=== PATIENT | male | born 1975 | race Caucasian/White ===

== ENCOUNTER 2016-07-19 04:23 | Emergency (ER) | payer MEDICARE, OTHER ==
--- NOTE | 2016-07-19 04:32 | ED ---
General Adult HPI - General Stated complaint: nausea,vomitting/blood Time Seen by Provider: 07/19/16 04:29 Source: RN notes reviewed, old records reviewed - History of Present Illness Initial comments: This is a 41-year-old male the ER for evaluation of possible GI bleed. Patient has some vomiting after dinner tonight and in the course of his vomiting he did vomit up some blood. Patient is on a blood thinners, does suffer from blood pressure, history of lymphoma with her nonissue at this time. Patient did not take his blood pressure medication tonight. Patient states he has no pain right now. Mild headache. In no nausea vomiting while in emergency room. His bowel movements have been loose but no blood, not dark and tarry. Patient denies any symptoms of weakness dizziness lightheadedness. Patient has no prior history of colonoscopy or blood in his stool or vomit - Related Data Home Medications Medication Instructions Recorded Confirmed Lisinopril [Zestril] 20 mg PO BID 02/26/15 07/19/16 Metoprolol Succinate [Toprol XL] 50 mg PO DAILY 02/26/15 07/19/16 metFORMIN HCL [Glucophage] 500 mg PO TID 02/26/15 07/19/16 Allergies Allergy/AdvReac Type Severity Reaction Status Date / Time Penicillins Allergy Rash/Hives Verified 10/22/15 01:10 sulfamethoxazole Allergy Rash/Hives Verified 10/22/15 01:10 [From Bactrim] trimethoprim [From Bactrim] Allergy Rash/Hives Verified 10/22/15 01:10 Review of Systems ROS Statement: Those systems with pertinent positive or pertinent negative responses have been documented in the HPI. ROS Other: All systems not noted in ROS Statement are negative. Past Medical History Past Medical History: Cancer, Diabetes Mellitus, Hypertension Additional Past Medical History / Comment(s): Hodgkins Lymphoma-In remission History of Any Multi-Drug Resistant Organisms: None Reported Past Surgical History: Cholecystectomy Additional Past Surgical History / Comment(s): umbilical hernia repair as a baby , undescended testicles, ear tube Past Anesthesia/Blood Transfusion Reactions: No Reported Reaction Past Psychological History: No Psychological Hx Reported Smoking Status: Never smoker Past Alcohol Use History: None Reported Past Drug Use History: None Reported - Past Family History Mother Family Medical History: Hypertension Additional Family Medical History / Comment(s): weak heart, failed stress test , clear cath,high cholesterol Father Family Medical History: Hypertension Additional Family Medical History / Comment(s): estheseoneuroblastoma, 2 clear caths, high cholesterol Brother(s) Additional Family Medical History / Comment(s): dislocated hip diagnosed at 2.5 years old, elevated heart rate General Exam General appearance: alert, in no apparent distress Head exam: Present: atraumatic, normocephalic, normal inspection Eye exam: Present: normal appearance, PERRL, EOMI. Absent: scleral icterus, conjunctival injection, periorbital swelling ENT exam: Present: normal exam, mucous membranes moist Neck exam: Present: normal inspection. Absent: tenderness, meningismus, lymphadenopathy Respiratory exam: Present: normal lung sounds bilaterally. Absent: respiratory distress, wheezes, rales, rhonchi, stridor Cardiovascular Exam: Present: regular rate, normal rhythm, normal heart sounds. Absent: systolic murmur, diastolic murmur, rubs, gallop, clicks GI/Abdominal exam: Present: soft, normal bowel sounds. Absent: distended, tenderness, guarding, rebound, rigid Extremities exam: Present: normal inspection, full ROM, normal capillary refill. Absent: tenderness, pedal edema, joint swelling, calf tenderness Back exam: Present: normal inspection Neurological exam: Present: alert, oriented X3, CN II-XII intact Psychiatric exam: Present: normal affect, normal mood Skin exam: Present: warm, dry, intact, normal color. Absent: rash Course Vital Signs 07/19/16 04:25 Temperature 97.8 F Pulse Rate 98 Respiratory 18 Rate Blood Pressure 212/111 O2 Sat by Pulse 97 Oximetry - Reevaluation(s) Reevaluation #1: 07/19/16 05:59 Patient remains without vomiting here in the emergency room Medical Decision Making - Medical Decision Making 41 male the ER for evaluation nausea vomiting, hematemesis. Patient's hemoglobin is normal, vital signs are normal and stable, patient is no active vomiting of blood here in the emergency room. Patient will be discharged home to return if symptoms worsen or continue. If patient feels lightheadedness dizziness or weakness. Patient denies history of drinking. States vomiting of blood was one episode after multiple vomiting after eating. - Lab Data Result diagrams: 07/19/16 04:45 07/19/16 04:45 Lab Results 07/19/16 07/19/16 07/19/16 Range/Units 04:45 04:45 04:45 WBC 8.7 (3.8-10.6) k/uL RBC 4.67 (4.30-5.90) m/uL Hgb 12.8 L (13.0-17.5) gm/dL Hct 38.9 L (39.0-53.0) % MCV 83.3 (80.0-100.0) fL MCH 27.5 (25.0-35.0) pg MCHC 33.0 (31.0-37.0) g/dL RDW 13.5 (11.5-15.5) % Plt Count 304 (150-450) k/uL Neutrophils % 81 % Lymphocytes % 10 % Monocytes % 5 % Eosinophils % 1 % Basophils % 1 % Neutrophils # 7.1 (1.3-7.7) k/uL Lymphocytes # 0.9 L (1.0-4.8) k/uL Monocytes # 0.5 (0-1.0) k/uL Eosinophils # 0.1 (0-0.7) k/uL Basophils # 0.1 (0-0.2) k/uL PT (9.0-12.0) sec INR (<1.1) APTT (22.0-30.0) sec Sodium 142 (137-145) mmol/L Potassium 4.4 (3.5-5.1) mmol/L Chloride 98 (98-107) mmol/L Carbon Dioxide 28 (22-30) mmol/L Anion Gap 16 mmol/L BUN 18 (9-20) mg/dL Creatinine 0.70 (0.66-1.25) mg/dL Est GFR (MDRD) Af Amer >60 (>60 ml/min/1.73 sqM) Est GFR (MDRD) Non-Af >60 (>60 ml/min/1.73 sqM) Glucose 273 H (74-99) mg/dL Calcium 10.2 (8.4-10.2) mg/dL Magnesium 1.5 L (1.6-2.3) mg/dL Total Bilirubin 0.9 (0.2-1.3) mg/dL AST 30 (17-59) U/L ALT 55 (21-72) U/L Alkaline Phosphatase 85 (38-126) U/L Total Creatine Kinase 102 (55-170) U/L CK-MB (CK-2) 0.8 (0.0-2.4) ng/mL CK-MB (CK-2) Rel Index 0.8 Troponin I <0.012 (0.000-0.034) ng/mL Total Protein 7.7 (6.3-8.2) g/dL Albumin 4.9 (3.5-5.0) g/dL Lipase 161 (23-300) U/L 07/19/16 Range/Units 04:45 WBC (3.8-10.6) k/uL RBC (4.30-5.90) m/uL Hgb (13.0-17.5) gm/dL Hct (39.0-53.0) % MCV (80.0-100.0) fL MCH (25.0-35.0) pg MCHC (31.0-37.0) g/dL RDW (11.5-15.5) % Plt Count (150-450) k/uL Neutrophils % % Lymphocytes % % Monocytes % % Eosinophils % % Basophils % % Neutrophils # (1.3-7.7) k/uL Lymphocytes # (1.0-4.8) k/uL Monocytes # (0-1.0) k/uL Eosinophils # (0-0.7) k/uL Basophils # (0-0.2) k/uL PT 9.9 (9.0-12.0) sec INR 1.0 (<1.1) APTT 20.7 L (22.0-30.0) sec Sodium (137-145) mmol/L Potassium (3.5-5.1) mmol/L Chloride (98-107) mmol/L Carbon Dioxide (22-30) mmol/L Anion Gap mmol/L BUN (9-20) mg/dL Creatinine (0.66-1.25) mg/dL Est GFR (MDRD) Af Amer (>60 ml/min/1.73 sqM) Est GFR (MDRD) Non-Af (>60 ml/min/1.73 sqM) Glucose (74-99) mg/dL Calcium (8.4-10.2) mg/dL Magnesium (1.6-2.3) mg/dL Total Bilirubin (0.2-1.3) mg/dL AST (17-59) U/L ALT (21-72) U/L Alkaline Phosphatase (38-126) U/L Total Creatine Kinase (55-170) U/L CK-MB (CK-2) (0.0-2.4) ng/mL CK-MB (CK-2) Rel Index Troponin I (0.000-0.034) ng/mL Total Protein (6.3-8.2) g/dL Albumin (3.5-5.0) g/dL Lipase (23-300) U/L Disposition Clinical Impression: Angeline-Kline tear, Upper gastrointestinal hemorrhage Disposition: HOME SELF-CARE Condition: Good Instructions: Gastrointestinal Bleeding (ED) Referrals: Avi Jovel MD [Primary Care Provider] - 1-2 days
[2016-07-19 04:34] VITALS: TEMP 97.8
[2016-07-19] MEDS ORDERED: SODIUM CHLORIDE 0.9% 500 ML IV STA (04:39)
[2016-07-19] MEDS ORDERED: SODIUM CHLORIDE 0.9% 1,000 ML IV STA (04:39)
[2016-07-19] MEDS ORDERED: PANTOPRAZOLE 40 MG/10 ML VIAL IVP STA (04:39)
[2016-07-19] MEDS ORDERED: ONDANSETRON 4 MG/2 ML VIAL IVP STA (04:39)
[2016-07-19 04:58] LABS: Basophils # (A) 0.1 k/uL (0-0.2); Basophils % (A) 1 %; CH 27.7; CHCM 33.4; Eosinophils # (A) 0.1 k/uL (0-0.7); Eosinophils % (A) 1 %; HCT 38.9 % (39.0-53.0); HDW 2.58; HGB 12.8 gm/dL (13.0-17.5); Luc # (Auto) 0.12; Luc % (Auto) 1; Lymphocytes # (A) 0.9 k/uL (1.0-4.8); Lymphocytes % (A) 10 %; MCH 27.5 pg (25.0-35.0); MCV 83.3 fL (80.0-100.0); Mean Platelet Volume 7.7; Monocytes # (A) 0.5 k/uL (0-1.0); Monocytes % (A) 5 %; Neutrophils # (A) 7.1 k/uL (1.3-7.7); Neutrophils % (A) 81 %; RBC 4.67 m/uL (4.30-5.90); RDW 13.5 % (11.5-15.5); WBC 8.7 k/uL (3.8-10.6)
[2016-07-19 05:11] LABS: ALT 55 U/L (21-72); AST 30 U/L (17-59); Alkaline Phosphatase 85 U/L (38-126); Anion Gap 16 mmol/L; Blood Urea Nitrogen 18 mg/dL (9-20); Calcium 10.2 mg/dL (8.4-10.2); Carbon Dioxide 28 mmol/L (22-30); Chloride 98 mmol/L (98-107); Glucose 273 mg/dL (74-99); Magnesium 1.5 mg/dL (1.6-2.3); Non-African American GFR(MDRD) >60 (>60 ml/min/1.73 sqM); Potassium 4.4 mmol/L (3.5-5.1); Sodium 142 mmol/L (137-145); Total Bilirubin 0.9 mg/dL (0.2-1.3); Total Protein 7.7 g/dL (6.3-8.2)
[2016-07-19 05:22] LABS: Prothrombin Time 9.9 sec (9.0-12.0)
[2016-07-19 05:23] LABS: Creatine Kinase 102 U/L (55-170)
[2016-07-19 05:29] LABS: Partial Thromboplastin Time 20.7 sec (22.0-30.0)
[2016-07-19 05:35] LABS: Creatine Kinase MB 0.8 ng/mL (0.0-2.4); Troponin I <0.012 ng/mL (0.000-0.034)
[2016-07-19] MEDS ORDERED: LABETALOL SYRINGE 5 MG/ML IVP STA (05:58)
[2016-07-19] MEDS: ACETAMINOPHEN IV (For NPO) 1,000 MG in EMPTY BAG 1 BAG IVPB STA ×2 (06:12→06:25)
[2016-07-19 07:00] VITALS: BP 156/97; PULSE 97; RESP 16
== END 2016-07-19 06:59 | disposition home or self-care (01) ==
LOC: EC 04:23
DX: K22.6 Gastro-esophageal laceration-hemorrhage syndrome (principal); K92.2 Gastrointestinal hemorrhage, unspecified; R51 Headache; I10 Essential (primary) hypertension; E11.9 Type 2 diabetes mellitus without complications; Z85.71 Personal history of Hodgkin lymphoma; Z79.899 Other long term (current) drug therapy; Z79.84 Long term (current) use of oral hypoglycemic drugs; Z88.0 Allergy status to penicillin; Z88.1 Allergy status to other antibiotic agents; Z88.2 Allergy status to sulfonamides
CPT/HCPCS: 36415; 80053; 82550; 82553; 83690; 83735; 84484; 85025; 85610; 85730; 99284; 96374; 96375; 96361; J2405; J0131; C9113

== ENCOUNTER → 2016-09-18 | Outpatient (CLI) | payer MEDICARE, OTHER ==
[2016-09-18 13:31] LABS: Basophils # (A) 0.1 k/uL (0-0.2); Basophils % (A) 1 %; CH 27.9; CHCM 32.8; Eosinophils # (A) 0.2 k/uL (0-0.7); Eosinophils % (A) 3 %; HCT 38.4 % (39.0-53.0); HDW 2.55; HGB 12.4 gm/dL (13.0-17.5); Luc # (Auto) 0.11; Luc % (Auto) 2; Lymphocytes # (A) 1.4 k/uL (1.0-4.8); Lymphocytes % (A) 26 %; MCH 27.5 pg (25.0-35.0); MCHC 32.2 g/dL (31.0-37.0); MCV 85.4 fL (80.0-100.0); Mean Platelet Volume 7.9; Monocytes # (A) 0.2 k/uL (0-1.0); Monocytes % (A) 4 %; Neutrophils # (A) 3.4 k/uL (1.3-7.7); Neutrophils % (A) 64 %; RBC 4.49 m/uL (4.30-5.90); RDW 13.8 % (11.5-15.5); WBC 5.3 k/uL (3.8-10.6); WBC (Perox) 5.41
[2016-09-18 13:33] LABS: Reticulocyte % 6.4 % (0.5-2.0)
[2016-09-18 13:36] LABS: ALT 49 U/L (21-72); AST 29 U/L (17-59); Alkaline Phosphatase 77 U/L (38-126); Anion Gap 13 mmol/L; Blood Urea Nitrogen 18 mg/dL (9-20); Calcium 10.4 mg/dL (8.4-10.2); Carbon Dioxide 30 mmol/L (22-30); Chloride 98 mmol/L (98-107); Glucose 282 mg/dL (74-99); Iron 78 ug/dL (49-181); Non-African American GFR(MDRD) >60 (>60 ml/min/1.73 sqM); Potassium 4.5 mmol/L (3.5-5.1); Sodium 141 mmol/L (137-145); Total Bilirubin 0.7 mg/dL (0.2-1.3); Total Protein 7.5 g/dL (6.3-8.2)
[2016-09-18 13:45] LABS: Total Iron Binding Capacity 300 ug/dL (261-462)
[2016-09-18 14:43] LABS: Vitamin B12 402 pg/mL (239-931)
== END | disposition home or self-care (01) ==
LOC: LABWHC1 12:58
PROVIDERS: ATTEND Internal Medicine Hematology & Oncology
DX: C81.90 Hodgkin lymphoma, unspecified, unspecified site (principal); D51.0 Vitamin B12 deficiency anemia due to intrinsic factor deficiency
CPT/HCPCS: 36415; 80053; 82607; 82728; 82746; 83540; 83550; 85025; 85045

== ENCOUNTER 2016-10-22 00:35 | Observation (INO) | payer MEDICARE, OTHER ==
[2016-10-22] MEDS ORDERED: ASPIRIN 81 MG CHEW PO STA (01:38)
[2016-10-22] MEDS ORDERED: MORPHINE SULFATE 4 MG/ML SYRINGE IVP STA (01:46)
[2016-10-22 02:01] LABS: Basophils # (A) 0.1 k/uL (0-0.2); Basophils % (A) 1 %; CH 28.3; CHCM 34.5; Eosinophils # (A) 0.2 k/uL (0-0.7); Eosinophils % (A) 3 %; HCT 35.6 % (39.0-53.0); HDW 2.53; Luc # (Auto) 0.12; Luc % (Auto) 2; Lymphocytes # (A) 1.8 k/uL (1.0-4.8); Lymphocytes % (A) 24 %; MCH 27.7 pg (25.0-35.0); MCHC 33.6 g/dL (31.0-37.0); MCV 82.4 fL (80.0-100.0); Mean Platelet Volume 7.5; Monocytes # (A) 0.2 k/uL (0-1.0); Monocytes % (A) 3 %; Neutrophils # (A) 5.3 k/uL (1.3-7.7); Neutrophils % (A) 69 %; RBC 4.32 m/uL (4.30-5.90); RDW 13.6 % (11.5-15.5); WBC 7.7 k/uL (3.8-10.6); WBC (Perox) 7.95
[2016-10-22 02:10] LABS: ALT 61 U/L (21-72); AST 31 U/L (17-59); Alkaline Phosphatase 87 U/L (38-126); Anion Gap 13 mmol/L; Blood Urea Nitrogen 24 mg/dL (9-20); Calcium 10.5 mg/dL (8.4-10.2); Carbon Dioxide 25 mmol/L (22-30); Chloride 99 mmol/L (98-107); Glucose 267 mg/dL (74-99); Magnesium 1.6 mg/dL (1.6-2.3); Non-African American GFR(MDRD) >60 (>60 ml/min/1.73 sqM); Potassium 4.5 mmol/L (3.5-5.1); Sodium 137 mmol/L (137-145); Total Bilirubin 0.6 mg/dL (0.2-1.3); Total Protein 7.4 g/dL (6.3-8.2)
--- NOTE | 2016-10-22 02:11 | ED ---
Recheck HPI - General Chief Complaint: Recheck/Abnormal Lab/Rx Stated Complaint: high BP and sugar Time Seen by Provider: 10/22/16 01:06 Source: patient, RN notes reviewed, old records reviewed Mode of arrival: ambulatory Limitations: no limitations - History of Present Illness Initial Comments: This is a 41-year-old male presenting to emergency with chief complaint of elevated blood sugar and high blood pressure to the past 2 days. Patient also reports he's had some chest pain. He relates that he has chronic chest pain after a port was placed in his left chest. He states these been trying to follow-up with multiple physicians to have this handled. Patient states that over the past day and feels that very heaviness on his chest. He also complains of some epigastric pain. Patient denies any fever or chills or cough. Denies any shortness of breath or diaphoresis. Patient states that he does have a history of cardiomyopathy. - Related Data Home Medications Medication Instructions Recorded Confirmed Lisinopril [Zestril] 20 mg PO BID 02/26/15 10/22/16 Metoprolol Succinate [Toprol XL] 50 mg PO DAILY 02/26/15 10/22/16 Cyanocobalamin [Vitamin B-12] 500 mcg PO DAILY 10/22/16 10/22/16 amLODIPine BESYLATE [Norvasc] 5 mg PO DAILY 10/22/16 10/22/16 sitaGLIPtin [Januvia] 100 mg PO DAILY 10/22/16 10/22/16 Allergies Allergy/AdvReac Type Severity Reaction Status Date / Time Penicillins Allergy Rash/Hives Verified 10/22/16 08:34 sulfamethoxazole Allergy Rash/Hives Verified 10/22/16 08:34 [From Bactrim] trimethoprim [From Bactrim] Allergy Rash/Hives Verified 10/22/16 08:34 Review of Systems ROS Statement: Those systems with pertinent positive or pertinent negative responses have been documented in the HPI. ROS Other: All systems not noted in ROS Statement are negative. Past Medical History Past Medical History: Cancer, Diabetes Mellitus, Hypertension Additional Past Medical History / Comment(s): Hodgkins Lymphoma-In remission History of Any Multi-Drug Resistant Organisms: None Reported Past Surgical History: Cholecystectomy Additional Past Surgical History / Comment(s): umbilical hernia repair as a baby , undescended testicles, ear tube Past Anesthesia/Blood Transfusion Reactions: No Reported Reaction Past Psychological History: No Psychological Hx Reported Smoking Status: Never smoker Past Alcohol Use History: None Reported Past Drug Use History: None Reported - Past Family History Mother Family Medical History: Hypertension Additional Family Medical History / Comment(s): weak heart, failed stress test , clear cath,high cholesterol Father Family Medical History: Hypertension Additional Family Medical History / Comment(s): estheseoneuroblastoma, 2 clear caths, high cholesterol Brother(s) Additional Family Medical History / Comment(s): dislocated hip diagnosed at 2.5 years old, elevated heart rate General Exam - General Exam Comments Initial Comments: Is a pleasant 41-year-old male. Patient does not appear to be in any acute distress. Limitations: no limitations General appearance: alert, in no apparent distress Head exam: Present: atraumatic, normocephalic, normal inspection Eye exam: Present: normal appearance, PERRL, EOMI. Absent: scleral icterus, conjunctival injection, periorbital swelling ENT exam: Present: normal exam, mucous membranes moist Neck exam: Present: normal inspection. Absent: tenderness, meningismus, lymphadenopathy Respiratory exam: Present: normal lung sounds bilaterally. Absent: respiratory distress, wheezes, rales, rhonchi, stridor Cardiovascular Exam: Present: regular rate, normal rhythm, normal heart sounds. Absent: systolic murmur, diastolic murmur, rubs, gallop, clicks GI/Abdominal exam: Present: soft, normal bowel sounds. Absent: distended, tenderness, guarding, rebound, rigid Extremities exam: Present: normal inspection, full ROM, normal capillary refill. Absent: tenderness, pedal edema, joint swelling, calf tenderness Back exam: Present: normal inspection Neurological exam: Present: alert, oriented X3, CN II-XII intact Psychiatric exam: Present: normal affect, normal mood Course Vital Signs 10/22/16 10/22/16 10/22/16 00:45 01:04 05:45 Temperature 97.7 F Pulse Rate 84 80 63 Respiratory 20 18 18 Rate Blood Pressure 187/110 169/105 137/77 O2 Sat by Pulse 98 98 98 Oximetry 10/22/16 10/22/16 10/22/16 06:25 07:46 09:43 Temperature 98 F Pulse Rate 73 68 70 Respiratory 18 16 16 Rate Blood Pressure 142/76 125/79 128/79 O2 Sat by Pulse 94 L 96 97 Oximetry Medical Decision Making - Medical Decision Making This is a 41-year-old male presents emergency Department with chief complaint of elevated blood pressure and blood sugar for the past few days. Patient also is concerned because he does have some heavy like chest pressure. Patient states he has a history of cardiomyopathy. EKG was reviewed does show significant ST-T wave abnormalities in the inferior and anterior lateral leads. Lab work reviewed, Blood glucose 261. Troponin negative. PAtient will be admitted for serial troponins. PAtient was given Morphine, and Aspirin. PAtient states that he cannot take nitroglycerin, from previous bad reaction that dropped his blood pressure too low. Patient will be kept for observatoin and cardiology consult. - Lab Data Result diagrams: 10/22/16 01:50 10/22/16 01:50 Lab Results 10/22/16 10/22/16 10/22/16 Range/Units 01:50 01:50 01:50 WBC 7.7 (3.8-10.6) k/uL RBC 4.32 (4.30-5.90) m/uL Hgb 12.0 L (13.0-17.5) gm/dL Hct 35.6 L (39.0-53.0) % MCV 82.4 (80.0-100.0) fL MCH 27.7 (25.0-35.0) pg MCHC 33.6 (31.0-37.0) g/dL RDW 13.6 (11.5-15.5) % Plt Count 259 (150-450) k/uL Neutrophils % 69 % Lymphocytes % 24 % Monocytes % 3 % Eosinophils % 3 % Basophils % 1 % Neutrophils # 5.3 (1.3-7.7) k/uL Lymphocytes # 1.8 (1.0-4.8) k/uL Monocytes # 0.2 (0-1.0) k/uL Eosinophils # 0.2 (0-0.7) k/uL Basophils # 0.1 (0-0.2) k/uL Sodium 137 (137-145) mmol/L Potassium 4.5 (3.5-5.1) mmol/L Chloride 99 (98-107) mmol/L Carbon Dioxide 25 (22-30) mmol/L Anion Gap 13 mmol/L BUN 24 H (9-20) mg/dL Creatinine 1.00 (0.66-1.25) mg/dL Est GFR (MDRD) Af Amer >60 (>60 ml/min/1.73 sqM) Est GFR (MDRD) Non-Af >60 (>60 ml/min/1.73 sqM) Glucose 267 H (74-99) mg/dL Calcium 10.5 H (8.4-10.2) mg/dL Magnesium 1.6 (1.6-2.3) mg/dL Total Bilirubin 0.6 (0.2-1.3) mg/dL AST 31 (17-59) U/L ALT 61 (21-72) U/L Alkaline Phosphatase 87 (38-126) U/L Total Creatine Kinase 73 (55-170) U/L CK-MB (CK-2) 0.9 (0.0-2.4) ng/mL CK-MB (CK-2) Rel Index 1.2 Troponin I <0.012 (0.000-0.034) ng/mL NT-Pro-B Natriuret Pep pg/mL Total Protein 7.4 (6.3-8.2) g/dL Albumin 4.5 (3.5-5.0) g/dL 10/22/16 Range/Units 01:50 WBC (3.8-10.6) k/uL RBC (4.30-5.90) m/uL Hgb (13.0-17.5) gm/dL Hct (39.0-53.0) % MCV (80.0-100.0) fL MCH (25.0-35.0) pg MCHC (31.0-37.0) g/dL RDW (11.5-15.5) % Plt Count (150-450) k/uL Neutrophils % % Lymphocytes % % Monocytes % % Eosinophils % % Basophils % % Neutrophils # (1.3-7.7) k/uL Lymphocytes # (1.0-4.8) k/uL Monocytes # (0-1.0) k/uL Eosinophils # (0-0.7) k/uL Basophils # (0-0.2) k/uL Sodium (137-145) mmol/L Potassium (3.5-5.1) mmol/L Chloride (98-107) mmol/L Carbon Dioxide (22-30) mmol/L Anion Gap mmol/L BUN (9-20) mg/dL Creatinine (0.66-1.25) mg/dL Est GFR (MDRD) Af Amer (>60 ml/min/1.73 sqM) Est GFR (MDRD) Non-Af (>60 ml/min/1.73 sqM) Glucose (74-99) mg/dL Calcium (8.4-10.2) mg/dL Magnesium (1.6-2.3) mg/dL Total Bilirubin (0.2-1.3) mg/dL AST (17-59) U/L ALT (21-72) U/L Alkaline Phosphatase (38-126) U/L Total Creatine Kinase (55-170) U/L CK-MB (CK-2) (0.0-2.4) ng/mL CK-MB (CK-2) Rel Index Troponin I (0.000-0.034) ng/mL NT-Pro-B Natriuret Pep 120 pg/mL Total Protein (6.3-8.2) g/dL Albumin (3.5-5.0) g/dL 10/22/16 02:11 EKG shows normal sinus rhythm. Right superior axis deviation. ST-T wave abnormality inferior and anterior lateral leads. Major rates a 4 bpm. DC interval 180. Care estrogen one only. QT QTC 382/420 for muscle pains. Disposition Clinical Impression: Chest pain Disposition: ADMITTED IP TO THIS HOSP Condition: Stable Time of Disposition: 02:34
[2016-10-22 02:26] LABS: Creatine Kinase 73 U/L (55-170)
[2016-10-22] MEDS ORDERED: NITROGLYCERIN SL TABS 0.4 MG TAB SUBLINGUAL PRN (02:31)
[2016-10-22 02:40] LABS: Creatine Kinase MB 0.9 ng/mL (0.0-2.4); Troponin I <0.012 ng/mL (0.000-0.034)
[2016-10-22] MEDS ORDERED: ACETAMINOPHEN TAB 325 MG TAB PO PRN (02:42)
[2016-10-22] MEDS ORDERED: MORPHINE SULFATE 4 MG/ML SYRINGE IV PRN (02:42)
[2016-10-22] MEDS ORDERED: NALOXONE 0.4 MG/ML 1 ML VIAL IV PRN (02:42)
[2016-10-22] MEDS: ONDANSETRON 4 MG/2 ML VIAL IVP PRN ×2 (02:52→11:27)
--- NOTE | 2016-10-22 04:38 | XR ---
EXAM: XR Chest, 2 Views CLINICAL HISTORY: Reason: Chest Pain TECHNIQUE: Frontal and lateral views of the chest. COMPARISON: Chest x-ray dated 10/22/2015 FINDINGS: Lungs: Bibasilar atelectasis. Pleural space: Unremarkable. No pneumothorax. Heart: Mild enlargement of the cardiomediastinal silhouette. Mediastinum: See above. Bones/joints: Unremarkable. IMPRESSION: No acute findings.
[2016-10-22 07:33] LABS: Appearance,Urine Cloudy (Clear); Bilirubin,Urine Negative (Negative); Glucose,Urine (UA) Negative (Negative); Ketones,Urine Negative (Negative); Leukocyte Esterase,Urine Moderate (Negative); Nitrite,Urine Negative (Negative); Particle Count 423; Protein,Urine Trace (Negative); Specific Gravity,Urine 1.021 (1.001-1.035); UA Billing (MACRO vs. MICRO) MICRO; WBC,Urine <1 /hpf (0-5)
[2016-10-22 07:47] VITALS: RESP 16
[2016-10-22 08:11] LABS: Creatine Kinase 68 U/L (55-170)
[2016-10-22 08:22] LABS: Glucose,Whole Blood 260 mg/dL (75-99)
[2016-10-22 08:24] LABS: Creatine Kinase MB 0.8 ng/mL (0.0-2.4); Troponin I <0.012 ng/mL (0.000-0.034)
[2016-10-22] MEDS: INSULIN LISPRO (humaLOG) 300 UNIT/3 ML VIAL SQ SCH ×3 (08:30→19:03)
[2016-10-22] MEDS ORDERED: METOPROLOL SUCCINATE (ER) 50 MG TAB.ER.24H PO SCH (09:00)
[2016-10-22] MEDS: LISINOPRIL 20 MG TAB PO SCH ×2 (09:11→20:55)
[2016-10-22] MEDS: LINAGLIPTIN 5 MG TABLET PO SCH (09:11)
[2016-10-22] MEDS: KETOROLAC 30 MG/ML 1 ML VIAL IVP PRN ×2 (12:30→20:21)
[2016-10-22 17:02] LABS: Creatine Kinase 67 U/L (55-170)
[2016-10-22 17:14] LABS: Creatine Kinase MB 0.9 ng/mL (0.0-2.4); Troponin I <0.012 ng/mL (0.000-0.034)
[2016-10-22 17:16] LABS: Glucose,Whole Blood 226 mg/dL (75-99)
[2016-10-22] MEDS: metFORMIN 500 MG TAB PO SCH (19:03)
[2016-10-22] MEDS: ENOXAPARIN 40 MG/0.4 ML SYRINGE SQ SCH (19:03)
[2016-10-22 19:56] LABS: Partial Thromboplastin Time 22.1 sec (22.0-30.0); Prothrombin Time 10.1 sec (9.0-12.0)
[2016-10-22 19:58] LABS: Cholesterol 206 mg/dL (<200); HDL Cholesterol 45 mg/dL (40-60); Triglycerides 141 mg/dL (<150)
[2016-10-22 20:51] LABS: Glucose,Whole Blood 142 mg/dL (75-99)
[2016-10-22] MEDS: ATORVASTATIN 20 MG TAB PO SCH (20:55)
[2016-10-22] MEDS: METOPROLOL TARTRATE 50 MG TAB PO SCH (20:55)
--- NOTE | 2016-10-22 21:26 | CONS ---
DATE OF CONSULTATION: Mr. Mg Goldberg is a patient of Dr. Chester. He was admitted. When I asked the patient why he came to the hospital, he stated that his sugar was high. However, he also complains of some chest discomfort and was admitted to observation and cardiology consult was called. His pain actually is related to the port and he states that it hurts at night. He does not have any exertional discomfort. No shortness of breath on exertion. His medication list was reviewed and is documented in the chart and includes: 1. Lisinopril. 2. Metoprolol. 3. Vitamin B12. 4. Amlodipine. 5. Diabetes medications. HE IS ALLERGIC TO PENICILLIN, SULFA, AND BACTRIM. REVIEW OF SYSTEMS: No fever, chills, rigors. No cough or expectoration. No nausea, vomiting, or diarrhea. No hematuria, dysuria, strokes or seizures. No skin lesions or musculoskeletal complaints. Past history of diabetes and hypertension. SOCIAL HISTORY: Nonsmoker. On examination, he is afebrile. His blood pressure is 137/77 mm of mercury, respirations are normal. Heart sounds S1, S2 are normal. Breath sounds are normal. ABDOMEN: Soft, nontender. EXTREMITIES: Warm. No JVD. No thyromegaly. His labs are reviewed. Two sets of cardiac enzymes were normal. His blood sugars are elevated. His LDL is 133. IMPRESSION: 1. Atypical chest discomfort localized around his port. 2. Elevated blood sugars with diabetes. 3. LDL 133. SUGGEST: Await third set of cardiac enzymes and heparin can be discontinued. Start 20 mg of atorvastatin. The pain is quite atypical and he may follow with Dr. Yoko Chester and seen in the next few days.
--- NOTE | 2016-10-22 22:33 | HP ---
DATE OF ADMISSION: 10/22/2016 PRESENTING COMPLAINT: High blood sugar, high blood pressure. HISTORY OF PRESENTING COMPLAINT: This is a pleasant 41-year-old patient of Dr. Jovel whose has a mental age of probably grade 13. Other chronic stable medical conditions include diabetes, obstructive sleep apnea, uses CPAP machine. Patient lives with his parents. Patient presented with episode of not feeling well, blood pressure up, heart racing; gets these episodes. Also blood sugar has been running high. He also had some vomiting today. Feeling tired and rundown. Often feels his heart racing with palpitations. Patient did have a port on the left side of the chest that was removed, and apparently some scar tissue often gives a stabbing pain at the local site; has been seen by different pain specialists for the same, with not much help. Most of the history is obtained from his mother at the bedside. REVIEW OF SYSTEMS: CONSTITUTIONAL: Tired. HEENT: None. RESPIRATORY: None. CARDIOVASCULAR: As above. GASTROINTESTINAL: As above. GENITOURINARY: None. MUSCULOSKELETAL: None. DERMATOLOGICAL: None. HEMATOLOGICAL: None. LYMPHATIC: None. PSYCHIATRY: Developmental delay. NEUROLOGICAL: None. PAST HISTORY: 1. Hypertension. 2. Diabetes mellitus, type 2. 3. Obstructive sleep apnea. 4. Hodgkin's lymphoma, treated some time ago. PAST SURGICAL HISTORY: 1. Cholecystectomy. 2. Umbilical hernia repair as a baby. 3. Undescended testicles. SOCIAL HISTORY: Lives with his parents. Mother is his legal guardian. No smoking. FAMILY HISTORY: Hypertension, weak heart, high cholesterol. HOME MEDICATIONS: 1. Januvia 100 mg p.o. daily. 2. Norvasc 5 mg p.o. daily. 3. Toprol XL 50 mg p.o. daily. 4. Zestril 20 mg p.o. daily. 5. Vitamin B12 500 mcg p.o. daily. ALLERGIES: PENICILLIN and BACTRIM. On examination, temperature 98, pulse 60, respiration 16, blood pressure 125/79, pulse ox 96% on room air. Later blood pressure was 159/96. GENERAL APPEARANCE: Average build. Sitting up. Patient did throw up once. Sweating. EYES: Pupils equal. Conjunctivae normal. HEENT: Oral cavity normal. NECK: JVD not raised. Mass not palpable. RESPIRATORY: Effort normal. Lungs are clear. CARDIOVASCULAR: First and second sounds normal. No edema. ABDOMEN: Soft, nontender. Liver and spleen not palpable. LYMPHATIC: No lymph node palpable in neck or axillae. PSYCHIATRY: Alert, oriented x3. Mood and affect anxious-appearing. NEUROLOGICAL: Pupils equal. Cranial nerves grossly intact. Power and sensation grossly intact. White count 7.7, hemoglobin 12. Potassium 4.5. BUN 24, creatinine 1.0. Accu-Cheks 267, 260. Troponin less than 0.012. CHEST X-RAY: Nil acute. EKG shows diffuse ST-segment changes from inferior anterolateral leads. ASSESSMENT: 1. This is a patient who presents with some high blood pressure, chest discomfort, palpitations with ST-segment changes across the leads. Rule out underlying ischemia. 2. Diabetes mellitus, type 2, on oral hypoglycemic, uncontrolled. 3. Obstructive sleep apnea; uses CPAP machine. 4. Hypertension. 5. Slight developmental delay. PLAN: At this point will discontinue the Toprol XL and change it to Lopressor 50 mg twice a day. Low-salt. Add metformin 500 mg twice a day in addition to Januvia. Cardiology is consulted. Also will add a 2-D echocardiogram. Care was discussed with the parents at the bedside.
[2016-10-23] MEDS: KETOROLAC 30 MG/ML 1 ML VIAL IVP PRN (07:11)
[2016-10-23 08:05] LABS: Cholesterol 190 mg/dL (<200); HDL Cholesterol 31 mg/dL (40-60); Triglycerides 294 mg/dL (<150)
[2016-10-23] MEDS ORDERED: ASPIRIN 325 MG TAB PO SCH (09:00)
[2016-10-23 09:32] VITALS: BMI 25.7
--- NOTE | 2016-10-23 09:41 | ECHOF ---
Referral Reason:chest pain MEASUREMENTS -------- HEIGHT: 127.0 cm WEIGHT: 54.0 kg BP: 138/89 IVSd: 1.1 cm (0.6 - 1.1) LVIDd: 4.6 cm (3.9 - 5.3) LVPWd: 0.9 cm (0.6 - 1.1) IVSs: 1.3 cm LVIDs: 4.0 cm LVPWs: 1.2 cm LA Diam: 3.2 cm (2.7 - 3.8) LAESV Index (A-L): 33.78 ml/m Ao Diam: 3.3 cm (2.0 - 3.7) AV Cusp: 1.5 cm (1.5 - 2.6) LA Diam: 3.1 cm (2.7 - 3.8) MV EXCURSION: 19.783 mm (> 18.000) MV EF SLOPE: 122 mm/s (70 - 150) EPSS: 0.8 cm MV E Jaron: 0.65 m/s MV DecT: 206 ms MV A Jaron: 0.77 m/s MV E/A Ratio: 0.85 RAP: 5.00 mmHg RVSP: 19.39 mmHg FINDINGS -------- Sinus rhythm. This was a technically adequate study. There is borderline concentric left ventricular hypertrophy. Overall left ventricular systolic function is normal with, an EF between 55 - 60 %. The right ventricle is normal in size. LA is midly dilated 29-33ml/m2. The right atrial size is normal. The aortic valve is trileaflet, and appears structurally normal. No aortic stenosis or regurgitation. Mild mitral annular calcification present. Mild mitral regurgitation is present. Mild tricuspid regurgitation present. There is no evidence of pulmonary hypertension. The right ventricular systolic pressure, as measured by Doppler, is 19.39mmHg. Trace/mild (physiologic) pulmonic regurgitation. The aortic root size is normal. There is no pericardial effusion. CONCLUSIONS -------- 1. There is borderline concentric left ventricular hypertrophy. 2. There is no pericardial effusion. 3. Overall left ventricular systolic function is normal with, an EF between 55 - 60 %. 4. LA is midly dilated 29-33ml/m2. 5. Mild mitral annular calcification present. 6. Mild mitral regurgitation is present. 7. Mild tricuspid regurgitation present. 8. There is no evidence of pulmonary hypertension. 9. The right ventricular systolic pressure, as measured by Doppler, is 19.39mmHg. 10. Trace/mild (physiologic) pulmonic regurgitation. JOB SUPERINTENDENT: Jessica Delaney RDCS
[2016-10-23] MEDS ORDERED: RX INFO: IV CONTRAST WAS GIVEN 1 EACH MISC MISCELLANE PRN (09:54)
[2016-10-23 10:27] LABS: Glucose,Whole Blood 201 mg/dL (75-99)
--- NOTE | 2016-10-23 11:12 | CT ---
CT CHEST FOR PULMONARY EMBOLISM. EXAMINATION TYPE: CT angio chest DATE OF EXAM: 10/23/2016 10:51 AM INDICATION: Patient poor historian. Patient had abnormal EKG and complains of some left side upper c hest pain. CT DLP: 172.5 mGycm, Automated exposure control for dose reduction was used. CONTRAST: Patient injected with 100 mL of Omnipaque 350. COMPARISON: NONE TECHNIQUE: CT of the chest is performed on a spiral scan at 2 mm thick sections. Study is performed with intravenous contrast timed for evaluation for pulmonary embolism. This will limit additional po rtions of the evaluation. 3-D MIP images reconstructed by the technologist are reviewed on the compu ter in the coronal and sagittal planes. FINDINGS: No persistent filling defects are evident to suggest an acute pulmonary embolism. No mediastinal or hilar adenopathy enlarged by CT criteria is evident. The ascending aorta diameter at the level of the main pulmonary artery is 2.5 cm. The main pulmonary artery diameter at the bifur cation is 1.8 cm. Minimal pneumonitis changes in the right apex. Minimal subsegmental atelectasis is likely along the r ight diaphragm. Limited CT section through the upper abdomen are unremarkable. Portion of the thyroid visualized is n ormal. IMPRESSIONS: 1. No acute pulmonary emboli. 2. Suggestion of minimal subsegmental atelectasis at the right base.
[2016-10-23] MEDS: INSULIN LISPRO (humaLOG) 300 UNIT/3 ML VIAL SQ SCH ×2 (11:18→13:03)
[2016-10-23] MEDS: ATORVASTATIN 20 MG TAB PO SCH (11:25)
[2016-10-23] MEDS: LISINOPRIL 20 MG TAB PO SCH (11:25)
[2016-10-23] MEDS: METOPROLOL TARTRATE 50 MG TAB PO SCH (11:25)
[2016-10-23] MEDS: LINAGLIPTIN 5 MG TABLET PO SCH (11:25)
[2016-10-23] MEDS: metFORMIN 500 MG TAB PO SCH (11:26)
[2016-10-23] MEDS: ENOXAPARIN 40 MG/0.4 ML SYRINGE SQ SCH (11:26)
[2016-10-23 12:23] LABS: Glucose,Whole Blood 320 mg/dL (75-99)
[2016-10-23 13:53] VITALS: BP 167/86; PULSE 87; TEMP 97.8
[2016-10-23] MEDS ORDERED: amLODIPine 5 MG TAB PO SCH (15:15)
--- NOTE | 2016-10-24 05:41 | DS ---
DATE OF ADMISSION: 10/22/2016 DATE OF DISCHARGE: 10/23/2016 FINAL DIAGNOSES: 1. Accelerated hypertension, present on admission. 2. Diabetes mellitus, type 2, on oral hypoglycemic, uncontrolled. 3. Obstructive sleep apnea, uses CPAP machine. 4. Essential hypertension as above. 5. Slight developmental delay. HOSPITAL COURSE: This patient presented with high blood pressure, high sugars, some chest pain. Seen by Dr. Penaloza. ( ) for any further workup. Patient's 2-D echocardiogram showed preserved LV function, EF 55% to 60%, no wall motion abnormality was reported. Chest CT was negative for pulmonary embolism. Metformin was added. Blood pressure medications were adjusted, and blood pressure is better controlled by the time of discharge. Patient is feeling better. Tolerating a diet. On examination, lungs are clear. CARDIOVASCULAR: First and second sounds normal. DISCHARGE MEDICATIONS: 1. Zestril 20 mg p.o. b.i.d. 2. Vitamin B12, 500 mcg p.o. daily. 3. Norvasc 5 mg p.o. daily. 4. Januvia 100 mg p.o. daily. 5. Lipitor 20 mg p.o. daily. 6. Lopressor 50 mg p.o. b.i.d. 7. Glucophage 500 mg p.o. b.i.d. Follow up with Dr. Peace in one week. Follow up with Dr. Jovel in 3 days.
== END 2016-10-23 16:44 | disposition home or self-care (01) ==
LOC: EC 00:35 → 3OBS 02:34
PROVIDERS: ADMIT Hospitalist; ATTEND Hospitalist
DX: I10 Essential (primary) hypertension (principal); E11.65 Type 2 diabetes mellitus with hyperglycemia; Z99.89 Dependence on other enabling machines and devices; G47.33 Obstructive sleep apnea (adult) (pediatric); Z79.899 Other long term (current) drug therapy; R62.50 Unspecified lack of expected normal physiological development in childhood; Z79.84 Long term (current) use of oral hypoglycemic drugs; Z88.0 Allergy status to penicillin; Z88.2 Allergy status to sulfonamides; Z85.71 Personal history of Hodgkin lymphoma; R10.13 Epigastric pain; R11.10 Vomiting, unspecified; R07.89 Other chest pain; R00.2 Palpitations; R00.0 Tachycardia, unspecified; E78.00 Pure hypercholesterolemia, unspecified
CPT/HCPCS: 96376 ×4; 96374; 96375; 99285; 36415; 93005; 93306; 85379; 83880; 80061 ×2; 80053; 83036; 82550; 82553; 83735; 84484; 85025; 85610; 85730; 81001; 71020; 71275; G0378 ×2; J2270; Q9967; J2405; J1650 ×2; J1885 ×2

== ENCOUNTER → 2017-01-06 | Outpatient (CLI) | payer MEDICARE, OTHER ==
[2017-01-06 13:25] LABS: Blood Urea Nitrogen 22 mg/dL (9-20); Non-African American GFR(MDRD) >60 (>60 ml/min/1.73 sqM)
--- NOTE | 2017-01-06 14:26 | CT ---
EXAMINATION TYPE: CT soft tissue neck w con DATE OF EXAM: 01/06/2017 HISTORY: Patient complains of burning sensation in throat. 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 COMPARISON: CT neck and chest dated 03/14/2014. CT DLP: 277.1 mGycm. Automated Exposure Control for Dose Reduction was Utilized. TECHNIQUE: CT scan of the neck is performed with IV Contrast, patient injected with 100 mL of Omnipa que 300, axial images are obtained, coronal and sagittal reformatted images are reviewed. FINDINGS: Airway: No gross abnormality seen. Parotid/submandibular glands: No gross abnormality seen. Carotid/Vascular Structures: No significant stenosis. Osseous Structures: Osseous structures are intact. Lymph nodes: There is overall similarity in size and morphology of the visualized lymph nodes within the neck in comparison to the prior exam of 03/14/2014. The largest lymph nodes are seen near the retr omandibular vein just anterior to the sternocleidomastoid muscle on series 3 image 45 measuring 8 mm in short axis, previously measuring 7 mm and on series 3 image 48 measuring 7 mm, previously measurin g 7 mm. At the level of the submandibular gland just anterior to the common carotid artery on the rig ht there is a prominent lymph node measuring 8 mm in short axis, however this maintains a normal cent ral fatty hilum. On the right few prominent lymph nodes are also seen just inferior to the retromandi bular vein anterior to the sternocleidomastoid muscle on series 3 image 42 measuring 7 mm in short ax is and 6 mm in short axis. There is no adenopathy within the visualized superior mediastinum. Other s cattered nodes are seen along the anterior and posterior cervical chains, which are not enlarged. Left supraclavicular adenopathy is also similar to the prior and difficult to measure as it blends wi th the left subclavian vein but measures approximately 1.6 x 1.7 cm on series 3 image 19. IMPRESSION: Overall similar degree of left supraclavicular adenopathy and prominent bilateral cervica l lymph nodes at the levels of the retromandibular veins in comparison to the prior exam of 03/14/2014 . No significant progression of disease.
== END | disposition home or self-care (01) ==
LOC: RADCTMAIN 12:56
PROVIDERS: ATTEND Otolaryngology
DX: R59.0 Localized enlarged lymph nodes (principal); M54.2 Cervicalgia; Z85.71 Personal history of Hodgkin lymphoma
CPT/HCPCS: 82565; 84520; 70491; 36415; Q9967

== ENCOUNTER → 2017-09-16 | Outpatient (CLI) | payer MEDICARE, OTHER ==
[2017-09-16 14:08] LABS: Basophils % (A) 1 %; Eosinophils # (A) 0.2 k/uL (0-0.7); Eosinophils % (A) 3 %; HCT 36.7 % (39.0-53.0); HGB 11.9 gm/dL (13.0-17.5); Lymphocytes # (A) 1.4 k/uL (1.0-4.8); Lymphocytes % (A) 27 %; MCH 26.4 pg (25.0-35.0); MCHC 32.4 g/dL (31.0-37.0); MCV 81.7 fL (80.0-100.0); Mean Platelet Volume 8.3; Monocytes # (A) 0.2 k/uL (0-1.0); Monocytes % (A) 3 %; Neutrophils # (A) 3.5 k/uL (1.3-7.7); Neutrophils % (A) 65 %; Platelet Count 275 k/uL (150-450); RDW 13.8 % (11.5-15.5); Reticulocyte % 1.2 % (0.5-2.0); WBC 5.3 k/uL (3.8-10.6)
[2017-09-16 14:17] LABS: ALT 53 U/L (21-72); AST 25 U/L (17-59); Albumin 4.1 g/dL (3.5-5.0); Alkaline Phosphatase 95 U/L (38-126); Anion Gap 12 mmol/L; Blood Urea Nitrogen 25 mg/dL (9-20); Calcium 9.7 mg/dL (8.4-10.2); Carbon Dioxide 30 mmol/L (22-30); Chloride 98 mmol/L (98-107); Glucose 319 mg/dL (74-99); Potassium 5.1 mmol/L (3.5-5.1); Sodium 140 mmol/L (137-145); Total Bilirubin 0.4 mg/dL (0.2-1.3); Total Protein 6.6 g/dL (6.3-8.2)
[2017-09-16 19:54] LABS: Folate, Serum 11.5 ng/mL
== END | disposition home or self-care (01) ==
LOC: LABWHC1 13:32
PROVIDERS: ATTEND Internal Medicine Hematology & Oncology
DX: C81.11 Nodular sclerosis Hodgkin lymphoma, lymph nodes of head, face, and neck (principal); D51.0 Vitamin B12 deficiency anemia due to intrinsic factor deficiency
CPT/HCPCS: 36415; 80053; 82607; 82746; 85025; 85045

== ENCOUNTER → 2018-03-04 | Outpatient (CLI) | payer MEDICARE, OTHER ==
--- NOTE | 2018-03-05 08:39 | CT ---
EXAMINATION TYPE: CT brain wo/w con DATE OF EXAM: 03/04/2018 COMPARISON: 11/23/2009 IAC study HISTORY: unsteady gate/dizziness CT DLP: 2024.40 mGycm, Automated exposure control for dose reduction was used. CONTRAST: Patient injected with 0 mL of Isovue 300. CT of the brain is performed utilizing 3 mm thick sections through the posterior fossa and 3 mm thick sections through the remaining calvarium. Study is performed within 24 hours of arrival to the hospital. No abnormal hyperdensity is present to suggest an acute intracranial hemorrhage. No mass lesion is evident. No acute infarcts are evident. There is some subtle subcortical white matter change in the right fro ntal lobe, best visualized series 8 image 45. Sulci appear appropriate for the patient age. There is some mild prominence of the occipital horns of lateral ventricles. No temporal horn dilatation is evident. This likely a normal variant. This was o ut of the [id number] on the CT internal auditory canal study previous. No abnormal enhancement is evident. Paranasal sinuses and mastoid air cells within the [id number] are clear. IMPRESSIONS: 1. Mild prominence of the occipital horns of the lateral ventricles most likely is a normal variant. 2. Subtle subcortical white matter change right frontal lobe.
--- NOTE | 2018-03-05 13:35 | CT ---
EXAMINATION TYPE: CT angio neck DATE OF EXAM: 03/04/2018 HISTORY: unsteady gate/dizziness COMPARISON: Soft tissue neck 01/06/2017 CT DLP: 148.20 mGycm. Automated Exposure Control for Dose Reduction was Utilized. TECHNIQUE: CTA scan of the neck is performed with IV Contrast, patient injected with 65 mL of Isovue 300, axial images are obtained, coronal and sagittal reformatted images are reviewed. Three-D recons tructed images are created on an independent workstation and reviewed. FINDINGS: Carotid/Vascular Structures: Common carotid arteries bifurcate in the internal and external carotid a rteries. No significant stenosis at the origins are evident. Tibial arteries appear unremarkable. Three-D reconstructed images of the internal carotid arteries is performed. No significant flow-limit ing stenosis is identified. Other: Lung apices within the [id number] are clear. Portion of the thyroid visualized is normal. IMPRESSION: No significant stenosis bilateral carotid bifurcations.
== END | disposition home or self-care (01) ==
LOC: RADCTMAIN 16:25
PROVIDERS: ATTEND Psychiatry & Neurology Neurology
DX: R90.82 White matter disease, unspecified (principal); Z87.898 Personal history of other specified conditions
CPT/HCPCS: 70470; 70498; Q9967

== ENCOUNTER → 2018-05-01 | Outpatient (CLI) | payer MEDICARE, OTHER ==
--- NOTE | 2018-05-01 15:31 | MR ---
EXAMINATION TYPE: MR brain wo/w con DATE OF EXAM: 05/01/2018 COMPARISON: CT brain 03/04/2018 HISTORY: Ataxia, Unstable gait CONTRAST: Performed utilizing 5.5 mL intravenous Gadavist gadolinium contrast. TECHNIQUE: Multiplanar, multiecho imaging on a 3.0 Malika magnet is performed through the brain. Stud y is performed within 24 hours of arrival to the hospital. The craniovertebral junction is normal. The pituitary is normal. Diffusion-weighted imaging is performed. No abnormal hyperintensity is present to suggest an acute i ntracranial infarct or acute ischemic change. No suspicious acute change is in the right frontal lobe white matter is evident. Signal through the remaining portion of the brain appears within normal limits. There is some increas ed signal on inversion recovery weighted sequence along the right lateral ventricle occipital horn. S ome thickening is present. This is slightly hypointense with similar signal to oneal matter. This coul d be some heterotopic oneal matter. Subligamentous minimal tuberous sclerosis nodule could be consider ed. Solitary nature makes this less likely. Ventricles are prominent for the patient age. Occipital horns have greater dilatation in the remainin g portions. This may be a variant. No temporal horn dilatation is evident. Third ventricle and fourth ventricle are midline. IMPRESSIONS: 1. Small area of suspected heterotopic oneal matter within the lateral ventricle right occipital horn. 2. Occipital horn prominence without evidence of hydrocephalus. 3. Suspicious signal abnormality within the right frontal lobe is not identified.
== END | disposition home or self-care (01) ==
LOC: RADMRIMAIN 10:14
PROVIDERS: ATTEND Psychiatry & Neurology Neurology
DX: R27.0 Ataxia, unspecified (principal); Z87.898 Personal history of other specified conditions
CPT/HCPCS: 82565; 70553; 36415; A9585; 84520

== ENCOUNTER → 2018-08-13 | Day surgery (SDC) | payer MEDICARE, OTHER ==
[2018-08-04 11:46] VITALS: BMI 26.2
[~2018-08-13] MED LIST: SODIUM CHLORIDE 0.9% 1,000 ML IV SCH; SODIUM CHLORIDE 0.9% 250 ML IV ONE
[2018-08-13 09:35] VITALS: RESP 18; TEMP 98.2
[2018-08-13 09:37] LABS: Glucose,Whole Blood 122 mg/dL (75-99)
--- NOTE | 2018-08-13 11:40 | P.PCN ---
Preoperative Diagnosis: Diagnosis Recurrent syncope Twelve-lead ECG shows sinus rhythm normal ND narrow QRS with a left axis deviation inverted T waves inferolaterally Tilt table test per protocol Baseline blood pressure 148/89 mmHg baseline 179 minutes a minute patient was tilted upright at an angle of 70 per protocol. After 28 minutes of upright tilting his blood pressure was 142/84 mmHg and his pulse rate was about 90 beats a minute. Thereafter the was sudden drop in his blood pressure and his heart rate remained in the 80s and 90s and he briefly passed out. When he was laid supine his symptoms resolved Impression Neurocardiogenic response to upright tilting Twelve-lead ECG shows left axis deviation with T-wave inversions inferolaterally, normal QT interval normal ST segments in V1 through V3, no epsilon waves no delta waves Anesthesia: none Disposition: same day
[2018-08-13 11:45] VITALS: BP 173/99; PULSE 72
== END | disposition home or self-care (01) ==
LOC: CATHEP 08:51
PROVIDERS: ATTEND Internal Medicine Clinical Cardiac Electrophysiology
DX: R55 Syncope and collapse (principal); Z88.0 Allergy status to penicillin
CPT/HCPCS: 93660

== ENCOUNTER → 2018-10-19 | Outpatient (CLI) | payer MEDICARE, OTHER ==
[2018-10-19 14:26] LABS: Basophils # (A) 0.1 k/uL (0-0.2); Basophils % (A) 1 %; Eosinophils # (A) 0.2 k/uL (0-0.7); Eosinophils % (A) 3 %; HCT 38.9 % (39.0-53.0); HGB 12.1 gm/dL (13.0-17.5); Lymphocytes # (A) 1.2 k/uL (1.0-4.8); Lymphocytes % (A) 26 %; MCH 27.1 pg (25.0-35.0); MCHC 31.2 g/dL (31.0-37.0); MCV 87.1 fL (80.0-100.0); Monocytes # (A) 0.2 k/uL (0-1.0); Monocytes % (A) 4 %; Neutrophils % (A) 64 %; Platelet Count 274 k/uL (150-450); RBC 4.47 m/uL (4.30-5.90); RDW 14.1 % (11.5-15.5); Reticulocyte % 1.4 % (0.5-2.0); WBC 4.7 k/uL (3.8-10.6)
[2018-10-19 19:18] LABS: Albumin 4.5 g/dL (3.80-4.90); Albumin/Globulin Ratio 2.37 (1.60-3.17); Anion Gap 7.2 mmol/L (4.00-12.00); Calcium 9.4 mg/dL (8.7-10.3); Carbon Dioxide 28.8 mmol/L (21.6-31.8); Globulin 1.9 g/dL (1.6-3.3); Potassium 4.2 mmol/L (3.5-5.5); Total Bilirubin 0.5 mg/dL (0.2-1.2); Total Protein 6.4 g/dL (6.2-8.2)
[2018-10-19 19:26] LABS: Iron Saturation 31.49 (15.00-50.00)
[2018-10-19 19:48] LABS: Folate, Serum 18.1 ng/mL
== END | disposition home or self-care (01) ==
LOC: LABWHC1 13:30
PROVIDERS: ATTEND Internal Medicine Hematology & Oncology
DX: C81.11 Nodular sclerosis Hodgkin lymphoma, lymph nodes of head, face, and neck (principal); D64.9 Anemia, unspecified; D51.0 Vitamin B12 deficiency anemia due to intrinsic factor deficiency
CPT/HCPCS: 36415; 80053; 82607; 82728; 82746; 83540; 83550; 85025; 85045

== ENCOUNTER → 2019-10-18 | Outpatient (CLI) | payer MEDICARE, OTHER ==
[2019-10-18 10:59] LABS: Basophils % (A) 1 %; Eosinophils # (A) 0.2 k/uL (0-0.7); Eosinophils % (A) 3 %; HCT 37.5 % (39.0-53.0); HGB 11.9 gm/dL (13.0-17.5); Hypochromasia Slight; Lymphocytes # (A) 1.4 k/uL (1.0-4.8); Lymphocytes % (A) 24 %; MCH 28.3 pg (25.0-35.0); MCHC 31.7 g/dL (31.0-37.0); MCV 89.2 fL (80.0-100.0); Mean Platelet Volume 8.3; Monocytes # (A) 0.3 k/uL (0-1.0); Monocytes % (A) 5 %; Neutrophils # (A) 3.9 k/uL (1.3-7.7); Neutrophils % (A) 66 %; Platelet Count 244 k/uL (150-450); RDW 13.8 % (11.5-15.5); Reticulocyte % 1.4 % (0.5-2.0); WBC 5.9 k/uL (3.8-10.6)
[2019-10-18 16:13] LABS: % Iron Saturation 16.01 (15.00-50.00); African American GFR (CKD) 94.8 (60.0-200.0); Albumin 4.5 g/dL (3.80-4.90); Albumin/Globulin Ratio 2.25 (1.60-3.17); Anion Gap 10.3 mmol/L (4.00-12.00); BUN/Creat Ratio 29.09 Ratio (12.00-20.00); Calcium 9.4 mg/dL (8.7-10.3); Carbon Dioxide 24.7 mmol/L (21.6-31.8); Non-African American GFR(CKD) 81.8 (60.0-200.0); Potassium 4.6 mmol/L (3.5-5.5); Total Bilirubin 0.6 mg/dL (0.3-1.2); Total Protein 6.5 g/dL (6.2-8.2)
[2019-10-18 16:21] LABS: Ferritin 116.7 ng/mL (22.0-322.0)
== END | disposition home or self-care (01) ==
LOC: LABWHC1 10:22
PROVIDERS: ATTEND Internal Medicine Hematology & Oncology
DX: D64.9 Anemia, unspecified (principal); C81.11 Nodular sclerosis Hodgkin lymphoma, lymph nodes of head, face, and neck
CPT/HCPCS: 36415; 80053; 82607; 82728; 83540; 83550; 85025; 85045

== ENCOUNTER 2020-11-01 07:23 | Day surgery (SDC) | payer MEDICARE, OTHER ==
[2020-10-30 17:09] VITALS: BMI 28.1
[~2020-11-01 07:23] MED LIST changes: +FAMOTIDINE 20 MG/2 ML VIAL IV PRN; +LACTATED RINGERS 1,000 ML IV SCH; +LIDOCAINE 1% (10MG/ML) FOR IV START INTRADERMA PRN; +ONDANSETRON 4 MG/2 ML VIAL IVP PRN; +Pre Op ABX Message 1 EACH MISC MISCELLANE ONE; -SODIUM CHLORIDE 0.9% 1,000 ML IV SCH; -SODIUM CHLORIDE 0.9% 250 ML IV ONE; +fentaNYL (PF) 50 MCG/ML 2 ML AMP IV PRN
[2020-11-01 07:54] VITALS: RESP 16
[2020-11-01 07:59] LABS: Glucose,Whole Blood 136 mg/dL (75-99)
[2020-11-01] MEDS: ONDANSETRON 4 MG/2 ML VIAL IVP PRN ×2 (08:08→09:40)
[2020-11-01] MEDS ORDERED: DEXAMETHASONE SOD PHOSPHATE 4 MG/ML 1 ML VIAL IVP ONE (08:08)
[2020-11-01] MEDS ORDERED: OFLOXACIN 0.3% OPHTH DROPS 5 ML BOTTLE LEFT EAR ONE ×2 (08:48→09:13)
[2020-11-01] MEDS ORDERED: PROPOFOL 10 MG/ML 20 ML VIAL IV ONE (08:49)
[2020-11-01] MEDS ORDERED: MIDAZOLAM 2 MG/2 ML VIAL ONE (08:49)
[2020-11-01] MEDS ORDERED: fentaNYL (PF) 50 MCG/ML 2 ML AMP ONE (08:49)
[2020-11-01] MEDS ORDERED: LIDOCAINE 1% INJ 10MG/ML (20 ML MDV) ONE (08:49)
--- NOTE | 2020-11-01 09:20 | P.OP ---
Date of Procedure: 11/01/20 Preoperative Diagnosis: Left chronic otitis media Postoperative Diagnosis: Same Procedure(s) Performed: Left T-tube ventilation tube placement Anesthesia: DANIEL Surgeon: René Becker Estimated Blood Loss (ml): 0 Pathology: none sent Condition: stable Disposition: PACU Indications for Procedure: 45-year-old white male considered was with chronic otitis media on the left Operative Findings: Serous otitis media left middle ear Description of Procedure: Patient was brought in the operative suite and placed in a supine position. The patient underwent induction of general anesthesia with laryngeal mask airway intubation without difficulty. The patient was prepped and draped in usual aseptic fashion. The Zeiss microscope was positioned over the left ear and cerumen was cleaned from the external auditory canal. An anteroinferior myringotomy was placed in radial fashion and the middle ear effusion was aspirated. A 1.27 mm T-tube ventilation tube was placed without difficulty. Note that this tympanic membrane is quite thin and atelectatic as well as has some myringosclerosis. Therefore the ventilation tube may not hold as well in this type of the tympanic membrane and I explained this to his mother. Floxin otic suspension was placed and external auditory canal followed by sterile cotton ball. Patient was then allowed to emerge from anesthesia having tolerated procedure well was extubated in the operative suite and transferred to postop recovery area in satisfactory condition.
[2020-11-01 09:39] VITALS: TEMP 96.9
[2020-11-01] MEDS ORDERED: KETOROLAC 15 MG/ML 1 ML VIAL IVP ONE (10:04)
[2020-11-01] MEDS ORDERED: LACTATED RINGERS 1,000 ML IV ONE (10:07)
[2020-11-01] MEDS ORDERED: LABETALOL 5 MG/ML VIAL MDV IVP ONE (10:47)
[2020-11-01 11:17] VITALS: BP 142/88; PULSE 86
== END 2020-11-01 11:34 | disposition home or self-care (01) ==
LOC: OR 07:23
PROVIDERS: ATTEND Otolaryngology
DX: H66.92 Otitis media, unspecified, left ear (principal); E11.9 Type 2 diabetes mellitus without complications; I10 Essential (primary) hypertension; K21.9 Gastro-esophageal reflux disease without esophagitis; H69.83 Other specified disorders of Eustachian tube, bilateral; H90.3 Sensorineural hearing loss, bilateral; G47.33 Obstructive sleep apnea (adult) (pediatric); Z82.49 Family history of ischemic heart disease and other diseases of the circulatory system; Z85.71 Personal history of Hodgkin lymphoma; Z83.42 Family history of familial hypercholesterolemia; Z83.79 Family history of other diseases of the digestive system; Z98.890 Other specified postprocedural states; Z79.84 Long term (current) use of oral hypoglycemic drugs; Z79.899 Other long term (current) drug therapy; Z88.0 Allergy status to penicillin; Z88.2 Allergy status to sulfonamides
CPT/HCPCS: 69436; J2250; J1100; J2405; J2001; J3010; J1885; J2704

== ENCOUNTER → 2020-12-04 | Outpatient (CLI) | payer MEDICARE, OTHER ==
--- NOTE | 2020-12-04 18:01 | CT ---
EXAMINATION TYPE: CT iac wo con DATE OF EXAM: 12/04/2020 COMPARISON: Correlation CT brain 03/04/2018, MRI 05/01/2018 HISTORY: 45-year-old male left ear otalgia CT DLP: 142.70 mGycm Automated exposure control for dose reduction was used. TECHNIQUE: Contiguous high-resolution axial scanning of the temporal bones without IV contrast. Sanchez nal reformatted images are obtained. FINDINGS: Visualized intracranial structures redemonstrate colpocephaly likely due to dysgenesis of the posteri or corpus callosum when correlating with patient's prior MRI. The skull base appears normal. There is a linear foreign body measuring 1.0 cm long within the deep aspect of the left external marcial tory canal abutting the tympanic membrane. The middle ear cavities are well pneumatized. There is no abnormality of middle ear ossicles. There is opacification of the bilateral mid and inferior mastoid air cells. The round and oval windows are normal. There is no abnormality of bony labyrinths. There is no dehiscence of the superior semicircular canal s. The vestibular and cochlear aqueducts are well visualized. The facial nerve canal is normal bilaterally. The internal auditory canal and meati are symmetrical bilaterally. There is no evidence of fractures. Mild mucosal thickening left maxillary sinus. Old blowout fracture right orbital wall. 7 mm mucosal r etention cyst right maxillary sinus. Reformatted images confirm above findings. IMPRESSION: 1. A 1 cm linear foreign body deep in the left external auditory canal abutting the tympanic membrane . Clinical correlation and direct visualization recommended. Query some type of prosthesis or myrin gotomy tube. 2. Opacification of the mid and inferior bilateral mastoid air cells. Correlate for any mastoid pain to exclude mastoiditis. 3. 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
== END | disposition home or self-care (01) ==
LOC: RADCTMAIN 14:07
PROVIDERS: ATTEND Otolaryngology
DX: T16.2XXA Foreign body in left ear, initial encounter (principal)
CPT/HCPCS: 70480

== ENCOUNTER 2021-08-15 00:33 | Emergency (ER) | payer MEDICARE, OTHER ==
[2021-08-15 00:52] VITALS: RESP 18; TEMP 98.1
--- NOTE | 2021-08-15 01:51 | XR ---
EXAMINATION TYPE: XR chest 1V DATE OF EXAM: 08/15/2021 COMPARISON: 10/22/2016 HISTORY: Syncope TECHNIQUE: FINDINGS: Heart appears slightly enlarged. There is no heart failure. Lungs are clear of consolidatio n. There are no hilar masses. IMPRESSION: Mild cardiomegaly. No acute lung disease. No adverse change.
[2021-08-15] MEDS ORDERED: ONDANSETRON 4 MG/2 ML VIAL IVP STA ×3 (02:43→07:48)
[2021-08-15 03:27] LABS: Basophils % (A) 0 %; Eosinophils # (A) 0.2 k/uL (0-0.7); Eosinophils % (A) 1 %; HCT 41.3 % (39.0-53.0); HGB 13.2 gm/dL (13.0-17.5); Lymphocytes # (A) 0.6 k/uL (1.0-4.8); Lymphocytes % (A) 4 %; MCH 29.1 pg (25.0-35.0); Mean Platelet Volume 8.4; Monocytes # (A) 0.4 k/uL (0-1.0); Monocytes % (A) 3 %; Neutrophils # (A) 12.9 k/uL (1.3-7.7); Neutrophils % (A) 91 %; Platelet Count 316 k/uL (150-450); RBC 4.53 m/uL (4.30-5.90); RDW 13.8 % (11.5-15.5); WBC 14.2 k/uL (3.8-10.6)
[2021-08-15 03:29] LABS: Albumin 4.6 g/dL (3.5-5.0); Calcium 9.7 mg/dL (8.4-10.2); Potassium 4.9 mmol/L (3.5-5.1); Total Bilirubin 0.9 mg/dL (0.2-1.3); Total Protein 7.5 g/dL (6.3-8.2)
[2021-08-15 03:37] LABS: INR 0.9 (<1.2); Prothrombin Time 9.8 sec (9.0-12.0)
[2021-08-15 04:11] LABS: Toxic Granulation Present; Toxic Vacuolation Present
[2021-08-15 04:33] VITALS: BP 111/63
[2021-08-15 05:30] VITALS: PULSE 92
--- NOTE | 2021-08-15 06:15 | CT ---
EXAM: CT Abdomen and Pelvis Without Intravenous Contrast CLINICAL HISTORY: ITS.REASON CT Reason: abdominal pain, non-localized TECHNIQUE: Axial computed tomography images of the abdomen and pelvis without intravenous contrast. CTDI is 7.27 mGy and DLP is 390 mGy-cm. This CT exam was performed using one or more of the following dose reduction techniques: automated exposure control, adjustment of the mA and/or kV according to patient size, and/or use of iterative reconstruction technique. COMPARISON: No relevant prior studies available. FINDINGS: Lung bases: Scarring/atelectasis at the lung bases. Heart: Mild cardiomegaly. ABDOMEN: Liver: Unremarkable. Gallbladder and bile ducts: Cholecystectomy. No ductal dilation. Pancreas: Unremarkable. No ductal dilation. Spleen: Unremarkable. No splenomegaly. Adrenals: Unremarkable. No mass. Kidneys and ureters: Unremarkable. No obstructing stones. No hydronephrosis. Stomach and bowel: Liquid stool in colon, consistent with diarrheal disease. Diverticulosis, without acute diverticulitis. No small bowel obstruction. PELVIS: Appendix: Normal appendix. Bladder: Unremarkable. No stones. Reproductive: Unremarkable as visualized. ABDOMEN and PELVIS: Intraperitoneal space: Unremarkable. No free air. No significant fluid collection. Bones/joints: Degenerative changes of the spine with compression deformity of L1. This has a chronic appearance with mild retropulsion of the superior endplate. No dislocation. Soft tissues: Unremarkable. Vasculature: Mild atherosclerotic changes of the aorta. No abdominal aortic aneurysm. Lymph nodes: Unremarkable. No enlarged lymph nodes. IMPRESSION: 1. Liquid stool in colon, consistent with diarrheal disease. Diverticulosis, without acute diverticulitis. No small bowel obstruction. 2. Normal appendix. 3. Cholecystectomy. 4. Mild, chronic appearing compression deformity of L1. Associated, mild retropulsion of the superior endplate.
--- NOTE | 2021-08-15 06:53 | XR ---
EXAM: XR Left Ankle Complete, 3 or More Views CLINICAL HISTORY: ITS.REASON XR Reason: fall injury TECHNIQUE: Frontal, lateral and oblique views of the left ankle. COMPARISON: No relevant prior studies available. FINDINGS/IMPRESSION: Small fracture fragment in the region of the distal tibiofibular syndesmosis. Donor site is likely the anterior, distal tibia. CT scan recommended. Mild lateral soft tissue swelling. Intact medial and lateral malleoli. Mild ankle joint effusion. Osteoporosis.
--- NOTE | 2021-08-15 07:50 | ED ---
General Adult HPI - General Chief complaint: Syncope Stated complaint: Syncope Time Seen by Provider: 08/15/21 01:01 Source: patient, family, EMS Mode of arrival: EMS Limitations: physical limitation - History of Present Illness Initial comments: This patient is a 46-year-old man who presents here to have evaluation for syncopal episode and then a resulting fall. The patient had been at home, and was having a bowel movement when he had a syncopal episode and passed out. EMS was called and when they were attempting to get the patient up off the commode he fell injuring his ankle also striking his shoulder and head. The patient's main complaint currently is of ankle pain, though there is some lower abdominal cramping pain that has been going on for number of hours.. Patient did not note any chest pain, dyspnea, palpitations. Onset/Timin -: hour(s) Quality: other (Cramping) Consistency: intermittent Improves with: none Worsens with: none Associated Symptoms: syncope Treatments Prior to Arrival: none - Related Data Home Medications Medication Instructions Recorded Confirmed Lisinopril [Zestril] 20 mg PO BID 02/26/15 10/30/20 Metoprolol Succinate [Toprol Xl] 50 mg PO QAM 08/04/18 10/30/20 Pioglitazone [Actos] 30 mg PO DAILY 08/04/18 11/01/20 glipiZIDE [Glucotrol] 5 mg PO DAILY 08/04/18 11/01/20 Atorvastatin Calcium [Lipitor] 10 mg PO HS 10/30/20 11/01/20 Vit C/E/Zn/Coppr/Lutein/Zeaxan 1 each PO DAILY 10/30/20 10/30/20 [Preservision Areds 2 Softgel] Previous Rx's Medication Instructions Recorded Ondansetron Odt [Zofran ODT] 4 mg PO Q8HR PRN #10 tab 08/15/21 Allergies Allergy/AdvReac Type Severity Reaction Status Date / Time Penicillins Allergy Rash/Hives Verified 08/15/21 00:52 sulfamethoxazole Allergy Rash/Hives Verified 08/15/21 00:52 [From Bactrim] trimethoprim [From Bactrim] Allergy Rash/Hives Verified 08/15/21 00:52 Review of Systems ROS Statement: Those systems with pertinent positive or pertinent negative responses have been documented in the HPI. ROS Other: All systems not noted in ROS Statement are negative. Constitutional: Denies: fever, chills, weakness Eyes: Denies: vision change Respiratory: Denies: cough, dyspnea Cardiovascular: Reports: syncope. Denies: chest pain, palpitations, orthopnea, edema Gastrointestinal: Reports: as per HPI, abdominal pain, diarrhea. Denies: nausea, vomiting, constipation, melena, hematochezia Genitourinary: Denies: dysuria, hematuria Musculoskeletal: Reports: joint swelling, arthralgia. Denies: back pain Skin: Denies: rash Neurological: Denies: headache, weakness, numbness, confusion Past Medical History Past Medical History: Cancer, Diabetes Mellitus, Hypertension, Sleep Apnea/CPAP/BIPAP Additional Past Medical History / Comment(s): received both Moderna Covid Vacc ine, See Dr Penaloza's H&P,Hodgkins Lymphoma 2009-In remission, use cpap regularly,special needs-cognitive impairment History of Any Multi-Drug Resistant Organisms: None Reported Past Surgical History: Cholecystectomy, Ear Surgery Additional Past Surgical History / Comment(s): umbilical hernia repair as a baby, undescended testicles, joão ear tubes Past Anesthesia/Blood Transfusion Reactions: No Reported Reaction Additional Past Anesthesia/Blood Transfusion Reaction / Comment(s): no hx blood transfusion Past Psychological History: No Psychological Hx Reported Smoking Status: Never smoker Past Alcohol Use History: None Reported Past Drug Use History: None Reported - Past Family History Mother Family Medical History: Hypertension Additional Family Medical History / Comment(s): weak heart, failed stress test, clear cath,high cholesterol Father Family Medical History: Hypertension Additional Family Medical History / Comment(s): estheseoneuroblastoma, 2 clear caths, high cholesterol Brother(s) Additional Family Medical History / Comment(s): dislocated hip diagnosed at 2.5 years old, elevated heart rate General Exam Limitations: physical limitation General appearance: alert, in no apparent distress Head exam: Present: atraumatic, normocephalic Eye exam: Present: normal appearance. Absent: scleral icterus, conjunctival injection Neck exam: Present: normal inspection, full ROM. Absent: tenderness, meningismus Respiratory exam: Present: normal lung sounds bilaterally. Absent: respiratory distress, wheezes, rales, rhonchi, stridor Cardiovascular Exam: Present: regular rate, normal rhythm, normal heart sounds. Absent: systolic murmur, diastolic murmur, rubs, gallop GI/Abdominal exam: Present: soft, tenderness (some mild abdominal tenderness no rebound or guarding). Absent: distended, guarding, rebound, rigid, mass, pulsatile mass, hernia Extremities exam: Present: normal inspection, normal capillary refill. Absent: pedal edema, calf tenderness Back exam: Present: normal inspection. Absent: vertebral tenderness Neurological exam: Present: alert, oriented X3. Absent: motor sensory deficit Skin exam: Present: warm, dry, intact, normal color. Absent: rash Course Vital Signs 08/15/21 08/15/21 08/15/21 00:43 04:00 05:27 Temperature 98.1 F Pulse Rate 88 87 92 Respiratory 18 18 18 Rate Blood Pressure 113/71 111/63 O2 Sat by Pulse 100 Oximetry Medical Decision Making - Medical Decision Making Patient is 46-year-old man presenting for evaluation after fall about related syncopal episode during bowel movement. The patient's workup for syncope is unremarkable and the patient feels well and would like to go home. X-ray of the patient's ankle does reveal that there is a small fracture there. Patient given splint and to follow with orthopedics. I explained nonweightbearing status, appropriate further care and follow-up as well as return parameters. - Lab Data Result diagrams: 08/15/21 02:05 08/15/21 02:05 Lab Results 08/15/21 08/15/21 08/15/21 Range/Units 02:05 02:05 02:05 WBC 14.2 H (3.8-10.6) k/uL RBC 4.53 (4.30-5.90) m/uL Hgb 13.2 (13.0-17.5) gm/dL Hct 41.3 (39.0-53.0) % MCV 91.0 (80.0-100.0) fL MCH 29.1 (25.0-35.0) pg MCHC 32.0 (31.0-37.0) g/dL RDW 13.8 (11.5-15.5) % Plt Count 316 (150-450) k/uL MPV 8.4 Neutrophils % 91 % Lymphocytes % 4 % Monocytes % 3 % Eosinophils % 1 % Basophils % 0 % Neutrophils # 12.9 H (1.3-7.7) k/uL Lymphocytes # 0.6 L (1.0-4.8) k/uL Monocytes # 0.4 (0-1.0) k/uL Eosinophils # 0.2 (0-0.7) k/uL Basophils # 0.0 (0-0.2) k/uL Manual Slide Review Performed Toxic Granulation Present Toxic Vacuolation Present PT (9.0-12.0) sec INR (<1.2) APTT (22.0-30.0) sec Sodium 139 (137-145) mmol/L Potassium 4.9 (3.5-5.1) mmol/L Chloride 102 (98-107) mmol/L Carbon Dioxide 25 (22-30) mmol/L Anion Gap 12 mmol/L BUN 36 H (9-20) mg/dL Creatinine 1.66 H (0.66-1.25) mg/dL Est GFR (CKD-EPI)AfAm 57 (>60 ml/min/1.73 sqM) Est GFR (CKD-EPI)NonAf 49 (>60 ml/min/1.73 sqM) Glucose 184 H (74-99) mg/dL Calcium 9.7 (8.4-10.2) mg/dL Total Bilirubin 0.9 (0.2-1.3) mg/dL AST 35 (17-59) U/L ALT 30 (4-49) U/L Alkaline Phosphatase 84 (38-126) U/L Troponin I <0.012 (0.000-0.034) ng/mL Total Protein 7.5 (6.3-8.2) g/dL Albumin 4.6 (3.5-5.0) g/dL Blood Type Blood Type Confirm Blood Type Recheck Bld Type Recheck Status Antibody Screen Spec Expiration Date 08/15/21 08/15/21 08/15/21 Range/Units 02:50 03:00 03:11 WBC (3.8-10.6) k/uL RBC (4.30-5.90) m/uL Hgb (13.0-17.5) gm/dL Hct (39.0-53.0) % MCV (80.0-100.0) fL MCH (25.0-35.0) pg MCHC (31.0-37.0) g/dL RDW (11.5-15.5) % Plt Count (150-450) k/uL MPV Neutrophils % % Lymphocytes % % Monocytes % % Eosinophils % % Basophils % % Neutrophils # (1.3-7.7) k/uL Lymphocytes # (1.0-4.8) k/uL Monocytes # (0-1.0) k/uL Eosinophils # (0-0.7) k/uL Basophils # (0-0.2) k/uL Manual Slide Review Toxic Granulation Toxic Vacuolation PT 9.8 (9.0-12.0) sec INR 0.9 (<1.2) APTT 22.0 (22.0-30.0) sec Sodium (137-145) mmol/L Potassium (3.5-5.1) mmol/L Chloride (98-107) mmol/L Carbon Dioxide (22-30) mmol/L Anion Gap mmol/L BUN (9-20) mg/dL Creatinine (0.66-1.25) mg/dL Est GFR (CKD-EPI)AfAm (>60 ml/min/1.73 sqM) Est GFR (CKD-EPI)NonAf (>60 ml/min/1.73 sqM) Glucose (74-99) mg/dL Calcium (8.4-10.2) mg/dL Total Bilirubin (0.2-1.3) mg/dL AST (17-59) U/L ALT (4-49) U/L Alkaline Phosphatase (38-126) U/L Troponin I (0.000-0.034) ng/mL Total Protein (6.3-8.2) g/dL Albumin (3.5-5.0) g/dL Blood Type O Positive Blood Type Confirm O Positive Blood Type Recheck No Previous Record Bld Type Recheck Status CABO Indicated Antibody Screen NEGATIVE Spec Expiration Date 08/18/20212349 Disposition Clinical Impression: Gastroenteritis, Ankle fracture Disposition: HOME SELF-CARE Condition: Good Prescriptions: Ondansetron Odt [Zofran ODT] 4 mg PO Q8HR PRN #10 tab PRN Reason: Nausea Is patient prescribed a controlled substance at d/c from ED?: No Referrals: Avi Jovel MD [Primary Care Provider] - 1-2 days Iliana Simpson DO [Doctor of Osteopathic Medicine] - 1-2 days
== END 2021-08-15 09:30 | disposition home or self-care (01) ==
LOC: EC 00:33 → EEVIPCON 00:33 → EC 09:30
DX: K52.9 Noninfective gastroenteritis and colitis, unspecified (principal); S82.892A Other fracture of left lower leg, initial encounter for closed fracture; I10 Essential (primary) hypertension; E11.9 Type 2 diabetes mellitus without complications; Z88.0 Allergy status to penicillin; Z88.2 Allergy status to sulfonamides; W19.XXXA Unspecified fall, initial encounter
CPT/HCPCS: 36415; 86900; 86901; 80053; 84484; 85025; 85610; 85730; 86850; 73610; 71045; 74176; 99285; 96374; 96375; 96376; L4350; J2405

== ENCOUNTER → 2022-01-08 | Outpatient (CLI) | payer MEDICARE, OTHER ==
--- NOTE | 2022-01-08 15:08 | CT ---
EXAMINATION TYPE: CT soft tissue neck w con CT DLP: 284.5 mGycm, Automated exposure control for dose reduction was used. DATE OF EXAM: 01/08/2022 2:20 PM COMPARISON: CT Neck With 03/04/2018 CLINICAL INDICATION:Male, 46 years old with history of R22.1 Swelling, mass and lump neck , anterior neck mass, hx of lymphoma TECHNIQUE: Standard enhanced CT of the neck. Axial sections with coronal and sagittal reformats were obtained. Palpable marker placed at the discretion of the patient over the palpable abnormality.1 Contrast used:70cc mL of Isovue 300 with IV Contrast, Oral contrast used: None FINDINGS: Brain: Visualized portions are grossly unremarkable. Orbits: Unremarkable Sinuses: Grossly unremarkable. Spaces of the neck: Clear and symmetric. Palpable marker is present anteriorly without evidence for o rganizing fluid collection or mass. There is a prominent vessel in the nearby vicinity but not direct ly beneath the palpable marker. Musculoskeletal: No acute osseous pathology. Lymph nodes: Multiple nonenlarged lymph nodes are seen along both anterior chains of the neck. Vascular structures: Visualized major arteries are patent without evidence of aneurysm. Thoracic Inlet/airway: Airway is patent. The lung apices are clear. Soft tissues/Thyroid: Thyroid and remainder of the soft tissues are unremarkable. IMPRESSION 1. Marker without evidence for organizing fluid collection or mass. A vessel is in the nearby vicini ty but not directly beneath the vessel. 2. No greater than 1 cm in short axis lymph node seen throughout the neck.
== END | disposition home or self-care (01) ==
LOC: RADCTMAIN 12:52
PROVIDERS: ATTEND Family Medicine
DX: R22.1 Localized swelling, mass and lump, neck (principal)
CPT/HCPCS: 82565; 84520; 70491; 36415; Q9967

== ENCOUNTER → 2022-05-13 | Outpatient (CLI) | payer MEDICARE, OTHER ==
--- NOTE | 2022-05-13 14:32 | CT ---
EXAMINATION TYPE: CT iac wo con CT DLP: 230 mGycm, Automated exposure control for dose reduction was used. DATE OF EXAM: 05/13/2022 2:01 PM INDICATION: Patient age:Male; 47 years old; Reason for study: H91.90 hearing loss; COMPARISON: 12/04/2020. TECHNIQUE: Multiple thin axial images were obtained through the temporal bones and internal auditory canals. Additional coronal reformatted images were obtained. No IV contrast was utilized. CT Contrast: Contrast used: none. FINDINGS: Right Temporal Bone: External Ear: The external auditory canal is unremarkable, The tympanic membrane is present and unrem arkable. Middle Ear: The ossicles demonstrate a normal appearance. Prussak's space is clear and the scutum i s intact. There is no evidence of osseous erosion and the tegmen tympani is intact. Inner Ear: Cochlea, vestibule and semi circular canals are unremarkable. No evidence of carotid rich l dehiscence. Two and a half turns of the cochlea are identified. The vestibular aqueduct is not enl arged. Mastoid Air Cells: Redemonstration of opacification within the middle and inferior aspects of the mas toid air cells not significantly changed from prior. The tegmen mastoideum is intact. The aditus ad a ntrum is clear. Internal Auditory Canal: The internal auditory canal is unremarkable. Left Temporal Bone: External Ear: The external auditory canal is unremarkable, tympanostomy tube identified within the le ft external auditory canal with tip extending to the medial portion of the tympanic membrane. Middle Ear: The ossicles demonstrate a normal appearance. Prussak's space is clear and the scutum i s intact. There is no evidence of osseous erosion and the tegmen tympani is intact. Inner Ear: Cochlea, vestibule and semi circular canals are unremarkable. No evidence of carotid rich l dehiscence. Two and a half turns of the cochlea are identified. The vestibular aqueduct is not enl arged. Mastoid Air Cells: Redemonstration of opacification within the middle and inferior aspects of the mas toid air cells not significantly changed from prior. The tegmen mastoideum is intact. The aditus ad a ntrum is clear. Internal Auditory Canal: The internal auditory canal is unremarkable. IMPRESSION: 1. Stable position of left tympanostomy tube. 2. Stable bilateral mastoid air cell effusions.
== END | disposition home or self-care (01) ==
LOC: RADCTMAIN 13:43
PROVIDERS: ATTEND Otolaryngology
DX: H74.8X2 Other specified disorders of left middle ear and mastoid (principal); Z96.22 Myringotomy tube(s) status
CPT/HCPCS: 70480

== ENCOUNTER 2022-11-20 08:30 | Day surgery (SDC) | payer MEDICARE, OTHER ==
[2022-11-15 13:06] VITALS: BMI 28.1
[~2022-11-20 08:30] MED LIST changes: +DEXAMETHASONE SOD PHOSPHATE 4 MG/ML 1 ML VIAL IV ONE; -FAMOTIDINE 20 MG/2 ML VIAL IV PRN; +HYDROmorphone 0.5 MG/0.5 ML SYRINGE IVP PRN; +MIDAZOLAM 2 MG/2 ML VIAL IV PRN; +ONDANSETRON 4 MG/2 ML VIAL IVP ONE; -ONDANSETRON 4 MG/2 ML VIAL IVP PRN; -fentaNYL (PF) 50 MCG/ML 2 ML AMP IV PRN
[2022-11-20 09:20] LABS: Glucose,Whole Blood 104 mg/dL (70-110)
[2022-11-20] MEDS ORDERED: fentaNYL (PF) 50 MCG/ML 2 ML AMP ONE (10:04)
[2022-11-20] MEDS ORDERED: PROPOFOL 10 MG/ML 20 ML VIAL IV ONE (10:04)
[2022-11-20] MEDS ORDERED: LIDOCAINE 2% INJ 20 MG/ML (2 ML VIAL) ONE (10:04)
[2022-11-20] MEDS ORDERED: MIDAZOLAM 2 MG/2 ML VIAL ONE (10:04)
[2022-11-20] MEDS ORDERED: ePHEDrine 50 MG/ML 1 ML VIAL ONE (10:04)
[2022-11-20] MEDS ORDERED: OFLOXACIN 0.3% OPHTH DROPS 5 ML BOTTLE LEFT EAR ONE (10:23)
--- NOTE | 2022-11-20 10:27 | P.OP ---
Date of Procedure: 11/20/22 Preoperative Diagnosis: Left eustachian tube dysfunction with retained ventilation tube Postoperative Diagnosis: Same Procedure(s) Performed: Left ear microscopy with removal of retained T-tube Left myringoplasty Anesthesia: DANIEL Surgeon: René Becker Estimated Blood Loss (ml): 0 Pathology: none sent Condition: stable Disposition: PACU Indications for Procedure: The 47-year-old white male who has history eustachian tube dysfunction on the left and the T-tube. He's had some pain in the left ear and he feels that the ventilation tube may be causing the pain and would like this removed. No infection or drainage. Operative Findings: T-tube patent and intact in the left tympanic membrane no middle ear effusion or granulation Description of Procedure: Patient brought in the operative suite and placed in a supine position. Patient underwent induction of general anesthesia with mask inhalation and IV agents. The patient was prepped and draped in the [employer] microscope positioned over the left ear and cerumen was cleaned from the external auditory canal. The T-tube was grasped with an alligator forcep and was removed from the tympanic membrane. The perforation was seen sides of the T-tube and a small piece of [employer] material was placed as a lateral overlay at the edges of the perforation to act as a template for healing. This was placed and was moistened with oh Floxin Otic and was in good contact with all edges of the perforation. Sterile cottonball placed the patient was allowed to emerge from anesthesia having tolerated procedure well and was transferred to postop recovery area in satisfactory condition
[2022-11-20 10:53] VITALS: RESP 16; TEMP 97
[2022-11-20 10:56] VITALS: PULSE 84
[2022-11-20] MEDS ORDERED: ONDANSETRON 4 MG/2 ML VIAL IVP ONE (10:56)
[2022-11-20 11:23] VITALS: BP 153/89
[2022-11-20 11:34] LABS: Glucose,Whole Blood 116 mg/dL (70-110)
== END 2022-11-20 11:56 | disposition home or self-care (01) ==
LOC: OR 08:30
PROVIDERS: ATTEND Otolaryngology
DX: H69.92 Unspecified Eustachian tube disorder, left ear (principal); I10 Essential (primary) hypertension; E11.9 Type 2 diabetes mellitus without complications; E78.5 Hyperlipidemia, unspecified; G47.33 Obstructive sleep apnea (adult) (pediatric); E07.9 Disorder of thyroid, unspecified; Z82.49 Family history of ischemic heart disease and other diseases of the circulatory system; Z88.2 Allergy status to sulfonamides; Z88.0 Allergy status to penicillin; Z79.890 Hormone replacement therapy; Z79.899 Other long term (current) drug therapy
CPT/HCPCS: 69620; C1763; J2250; J1100; J2405; J3010; J2704; J2001